=== PATIENT | male | born 1955 | race African-American/Black ===

== ENCOUNTER 2017-02-03 22:56 | Emergency (ER) | payer MEDICARE, OTHER ==
[~2017-02-03] VITALS: Ht 182.9 cm; Wt 100.0 kg
[~2017-02-03 22:56] MED LIST: BACTRIM DS1 TAB PO; KEFLEX500 M1 PO; MOTRIN800 MG PO
[2017-02-03 23:36] LABS: HEMATOCRIT 46.5 % (39.0-50.0); HEMOGLOBIN 15.7 g/dl (14.0-18.0); IMMATURE GRANULOCYTES 0.3 % (0.0-1.0); MEAN CELL VOLUME 86.6 fL CALC (80.0-100.0); MEAN CORPUSCULAR HGB 29.2 pG CALC (26.0-32.0); MEAN CORPUSCULAR HGB CONC 33.8 g/L CALC (32.0-36.0); NEUT# 9.32 thou/uL (1.82-7.42); RED BLOOD COUNT 5.37 mill/uL (4.70-6.10); RED CELL DISTRI WIDTH 15.6 % (11.5-15.5)
[2017-02-03 23:47] LABS: ALBUMIN 4.4 g/dL (3.2-5.0); BILIRUBIN, TOTAL 2.4 mg/dL (0.0-1.4); CALCIUM 8.9 mg/dL (8.4-10.2); CREATININE 1.9 mg/dL (0.7-1.3); POTASSIUM 5.5 mmol/l (3.5-5.1); TOTAL PROTEIN 8.2 g/dL (6.3-8.2)
[2017-02-03] MEDS ORDERED: ASPIRIN81 MG PO (23:47)
[2017-02-03] MEDS ORDERED: LIPITOR40 M1 PO (23:48)
[2017-02-03] MEDS ORDERED: LISINOPRIL20 MG PO (23:50)
[2017-02-03] MEDS ORDERED: SENNA-TABS8.6 MG PO (23:51)
[2017-02-03] MEDS ORDERED: AMLODIPINE5 MG PO (23:52)
[2017-02-03] MEDS ORDERED: BUMEX1 M1 PO (23:54)
[2017-02-03] MEDS ORDERED: CARVEDILOL6.25 MG PO (23:54)
[2017-02-03] MEDS ORDERED: VALPROIC ACD250 M1 PO (23:55)
[2017-02-03] MEDS ORDERED: ELIQUIS5 MG PO (23:56)
[2017-02-04] LABS: INTERNATIONAL NORMALIZED RATIO 1.1 RATIO (0.7-1.3); PROTHROMBIN TIME 12.5 SECONDS (9.0-12.5)
[2017-02-04 00:59] VITALS: BP 177/134
== END 2017-02-03 23:55 | disposition left against medical advice (07) ==
LOC: ED 22:56
PROVIDERS: Emergency Medicine
DX: I49.9 Cardiac arrhythmia, unspecified (principal); I10 Essential (primary) hypertension; F03.90 Unspecified dementia, unspecified severity, without behavioral disturbance, psychotic disturbance, mood disturbance, and anxiety; R50.9 Fever, unspecified; Z91.19 Patient's noncompliance with other medical treatment and regimen; Z86.73 Personal history of transient ischemic attack (TIA), and cerebral infarction without residual deficits